=== PATIENT | female | born 1995 | race African-American/Black ===

== ENCOUNTER 2017-10-08 17:19 | Emergency (ER) | payer SELFPAY ==
[2017-10-08 17:46] LABS: Bilirubin Small (Negative); Blood, Urine Large (Negative); Clarity Slightly Cloudy (Clear); Glucose, Urine (Dipstick) Negative (Negative); Leukocyte Negative (Negative); Nitrite Negative (Negative); Protein, Urine (Dipstick) 100 mg/dL (Neg-Trace); Specific Gravity, Urine 1.015 (1.005-1.030); pH, Urine 6.5 (5.0-9.0)
[2017-10-08 17:47] LABS: Pregnancy Test - Urine (BHCG) Negative (Negative); Specific Gravity 1.015 (1.002-1.036)
[2017-10-08 17:48] LABS: Pregu Control Background? CLEAR/WHITE (CLR/WHITE); Pregu Control Bar Appear? YES (CONTROL BAR)
[2017-10-08 17:49] LABS: RBC/HPF 21-50 HPF (0-3)
[2017-10-08 17:50] LABS: Bacteria/HPF 1+ HPF (None Seen); Squamous Epithelial 0-3 HPF (0-3)
[2017-10-08 17:51] LABS: Oval Fat Bodies/HPF Rare HPF (None Seen)
[2017-10-08] MEDS ORDERED: Ondansetron ODT 4 MG TAB ONE (18:30)
[2017-10-08] MEDS ORDERED: Ketorolac Tromethamine 60 MG/2 ML VIAL ONE (18:30)
--- NOTE | 2017-10-08 19:30 | RAD ---
CHEST TWO VIEWS 10/08/17 HISTORY: Cough and fever. FINDINGS: Normal cardiac silhouette. Pulmonary vessels and hilum are normal. costophrenic angles are clear. No mass. No consolidation. No pneumothorax or osseous abnormalities. IMPRESSION: No acute cardiopulmonary process. POS: [facility]
== END 2017-10-08 19:21 | disposition home or self-care (01) ==
LOC: SCSER 17:19
DX: J40 Bronchitis, not specified as acute or chronic (principal)
CPT/HCPCS: 71046; 81003; 81015; 81025; 87081; 87430; 87804; 96372; J1885; Q0162

== ENCOUNTER 2017-10-11 13:51 | Emergency (ER) | payer SELFPAY ==
[~2017-10-11 13:51] MED LIST: Iopamidol 370 76% 100 ML VIAL ONE
[2017-10-11] MEDS ORDERED: Ondansetron HCl/PF 4 MG/2 ML Vial ONE (14:13)
[2017-10-11 14:23] LABS: #Basophils 0.1 thou/uL (0.0-0.2); #Lymphocytes 3.3 thou/uL (1.20-3.40); #Monocytes 0.6 thou/uL (0.11-0.59); #Neutrophils 4.4 thou/uL (1.40-6.50); %Basophils 0.9 % (0.0-1.0); %Eosinophils 0.1 % (0.0-10.0); %Lymphocytes 39.4 % (21.0-51.0); %Monocytes 6.7 % (0.0-10.0); %Neutrophils 52.9 % (42.0-75.0); Hemoglobin 13.5 g/dL (12.0-16.0); Mean Corpuscular HGB CONC 33.3 g/dL (32.0-36.0); Mean Corpuscular Hemoglobin 29.3 pg (27.0-31.0); Mean Corpuscular Volume 88.1 fl (81.0-99.0); Mean Platelet Volume 6.7 fL (7.4-10.4); Platelet Count 291 thou/uL (130-400); Red Blood Cell (RBC) Count 4.62 mill/uL (4.20-5.40); White Blood Cell (WBC) Count 8.3 thou/uL (4.8-10.8)
[2017-10-11 14:24] LABS: Bilirubin Negative (Negative); Blood, Urine Moderate (Negative); Clarity Clear (Clear); Glucose, Urine (Dipstick) Negative (Negative); Leukocyte Negative (Negative); Nitrite Negative (Negative); Protein, Urine (Dipstick) 100 mg/dL (Neg-Trace); pH, Urine 6.5 (5.0-9.0)
[2017-10-11 14:25] LABS: Pregnancy Test - Urine (BHCG) Negative (Negative); Pregu Control Background? CLEAR/WHITE (CLR/WHITE); Pregu Control Bar Appear? YES (CONTROL BAR)
[2017-10-11 14:31] LABS: Bacteria/HPF 1+ HPF (None Seen); Oval Fat Bodies/HPF Rare HPF (None Seen); Squamous Epithelial 0-3 HPF (0-3); WBC/HPF 0-3 HPF (0-3)
[2017-10-11 14:42] LABS: ALT (SGPT) 13 U/L (8-55); AST (SGOT) 18 U/L (5-34); Alkaline Phosphatase 59 U/L (40-150); Anion Gap 13 mmol/L (10-20); BUN (Urea Nitrogen) 7 mg/dL (7.0-18.7); Bilirubin, Total 0.6 mg/dL (0.2-1.2); Calc. Creatinine Clearance 0 mL/min (70-130); Calcium 9.2 mg/dL (7.8-10.44); Carbon Dioxide 28 mmol/L (22-29); Chloride 102 mmol/L (98-107); Estimated GFR-MDRD Greater than 90; Globulin 3.4 g/dL (2.4-3.5); Glucose 86 mg/dL (70-105); Lipase 34 U/L (8-78); Potassium 3.4 mmol/L (3.5-5.1); Protein, Total 7.4 g/dL (6.0-8.3); Sodium 140 mmol/L (136-145)
--- NOTE | 2017-10-11 16:29 | CT ---
ABDOMEN AND PELVIS CT WITH CONTRAST: Clinical history: Abdominal pain. Nausea, vomiting. FINDINGS: Imaged lung bases reveal reticular nodular opacities, ground glass in appearance favoring an atypical infection although incompletely assessed. Multifocal patchy hypoattenuating foci of each kidney are seen, more notable on the right. This indicates pyelonephritis. There is no focal hepatic or splenic lesion. No peripancreatic inflammation. Bowel is not reliably assessed without enteric contrast. Ther e is heterogeneity in the pelvis and adnexa with moderate volume of free pelvic fluid. Moderate diste ntion of the unopacified urinary bladder. Osseous structures reveal no acute findings. IMPRESSION: 1. Multifocal heterogeneity with hypoattenuating foci of each kidney which may be on the basis of marcelle lonephritis. Recommend correlation with urinary and laboratory values. 2. Findings indicate atypical infection at the lung bases. POS: [facility]
== END 2017-10-11 16:58 | disposition home or self-care (01) ==
LOC: SCSER 13:51
DX: R10.32 Left lower quadrant pain (principal); R11.2 Nausea with vomiting, unspecified
CPT/HCPCS: 74177; 80053; 81003; 81015; 81025; 83690; 85025; 96361; 96374; J2405

== ENCOUNTER 2019-08-04 14:31 | Outpatient (CLI) | payer OTHER ==
--- NOTE | 2019-08-04 15:43 | ULT ---
OB ULTRASOUND: HISTORY: anatomy. FINDINGS: A single live intrauterine gestation is seen with measurements corresponding to an estimated gestatio nal age of 20 weeks 4 days and NATALEE at 12/18/2019. The estimated weight measures 379 gm or 13 ou nces (15% by Hadlock criteria). measurements are as follows: BPD 4.79 cm, 20 weeks 3 days HC 18.03 cm, 20 weeks 3 days AC 15.60 cm, 20 weeks 5 days FL 3.49 cm, 21 weeks 0 days heart rate measures 49 b.p.m. LORI measures 17.6 cm. Placenta is anteriorly located without ev idence of placenta previa. A 3-vessel cord, cord insertion, kidneys, bladder, lateral ventricles, cerebellum, spine, 4-gale mber heart, stomach, nose and lips as well as upper and lower extremities are visualized. No definit e abnormalities are seen. IMPRESSION: Single live intrauterine of 20 weeks 4 days estimated gestational age and estimated date of delivery at 12/18/2019. POS: [facility]
== END 2019-08-04 14:32 | disposition home or self-care (01) ==
LOC: ULT 14:31
PROVIDERS: ATTEND Family Medicine
DX: Z34.02 Encounter for supervision of normal first pregnancy, second trimester (principal); Z3A.20 20 weeks gestation of pregnancy
CPT/HCPCS: 76805

== ENCOUNTER 2019-09-23 21:16 | Day surgery (SDC) | payer OTHER ==
[2019-09-23 21:48] VITALS: BP 125/75; TEMP 98.6; BMI 32.3
[2019-09-23] MEDS ORDERED: hydrALAZINE 20 MG/ML VIAL SLOW IVP PRN (22:32)
--- NOTE | 2019-09-23 23:41 | PRG ---
DATE OF SERVICE: PRIMARY OB: Blu Wu MD CHIEF COMPLAINT: Fall. HISTORY OF PRESENT ILLNESS: The patient is a 24-year-old, G1, P0 female with an intrauterine at 27 weeks and 5 days presenting after she had a fall about an hour and a half ago. The patient reports that she was walking in her house and tripped over a garbage can lid, causing her to stumble forward and fall to her knees, hitting the side of the entry door with her side and her belly. The patient denies any direct trauma to the front of her belly. She denies any vaginal bleeding or leakage of fluid. She does report she has had quite a bit of cramping initially, but it seems to be improving. She denies any fever, headache, chest pain, shortness of breath, nausea, vomiting, or diarrhea. She reports she has constipation on occasion. Denies any new rashes, hip problems, knee problems, or muscle weakness. She is still quite sore in her lower pelvis, making it difficult to move and get up. She denies again vaginal bleeding or leakage of fluid. Denies urinary urgency or frequency. PAST MEDICAL HISTORY: Negative. PAST SURGICAL HISTORY: Tonsillectomy. SOCIAL HISTORY: Denies drug, alcohol, or tobacco use. ALLERGIES: NO KNOWN DRUG ALLERGIES. MEDICATIONS: vitamins. OB LABS: Unavailable at time of dictation. REVIEW OF SYSTEMS: Per HPI. PHYSICAL EXAMINATION: VITAL SIGNS: Blood pressure is 125/75, heart rate of 82, saturating 100% on room air, and respiratory rate 18. GENERAL: She appears to be in no acute distress. She is alert, oriented, cooperative, and pleasant to interact with. HEAD: Normocephalic and atraumatic. The patient does exhibit difficulty trying to sit up from tenderness in her lower pelvis. LUNGS: Clear to auscultation bilaterally. HEART: Has regular rate and rhythm. ABDOMEN: Gravid and soft. Again, she has tenderness with deviation of the uterus in her lower pelvis. There is no CVA tenderness. No paravertebral tenderness. No SI joint tenderness. EXTREMITIES: Nontender and nonedematous. DIAGNOSTIC DATA: heart tracing shows the fetus with a baseline in the 140s with moderate long-term variability. Tocometer shows some irritability. Type and screen is pending. ASSESSMENT AND PLAN: The patient is a 24-year-old, G1, P0 female with an intrauterine at 27 weeks and 5 days, status post a fall, causing indirect trauma to her abdomen from the side. The patient has been having cramping since the time of the event, though she reports that does seem to be improving. We will be monitoring her for at least 4 hours and then re-evaluate. I have ordered a type and screen just to understand what her Rh status is. The abdomen is soft to palpation and nontender, I do not suspect any current abruption. After monitoring for about 4 hours, we will re-evaluate and send home if her contractions have dissipated. Fetus has a category I tracing. addenddum Blood type_O+ PT was discharged home stable after four hours of monitoring. Job ID: [id number] [facility]
== END 2019-09-24 01:15 | disposition home or self-care (01) ==
LOC: L&D/OP 21:16
PROVIDERS: ATTEND Family Medicine
DX: O99.89 Other specified diseases and conditions complicating pregnancy, childbirth and the puerperium (principal); R10.30 Lower abdominal pain, unspecified; Z3A.27 27 weeks gestation of pregnancy; W01.198A Fall on same level from slipping, tripping and stumbling with subsequent striking against other object, initial encounter
CPT/HCPCS: 36415; 86900; 86901; 99283

== ENCOUNTER 2019-11-19 23:18 | Day surgery (SDC) | payer OTHER ==
[2019-11-19] MEDS ORDERED: Ondansetron PF 4 MG/2 ML Vial ONE (23:43)
[2019-11-19 23:54] VITALS: BMI 34.0
[2019-11-20] MEDS ORDERED: Lactated Ringer's 1,000 ML IV SCH (00:30)
[2019-11-20] MEDS ORDERED: hydrALAZINE 20 MG/ML VIAL SLOW IVP PRN (01:36)
--- NOTE | 2019-11-20 04:00 | PRG ---
DATE OF SERVICE: 11/19/2019 PRIMARY OB: Dr. Blu Wu. CHIEF COMPLAINT: Nausea, vomiting, and diarrhea. HISTORY OF PRESENT ILLNESS: The patient is a 24-year-old, G1, P0 female with an intrauterine at 36 weeks' gestation, who has presented to Labor and Delivery with a 2-day history of nausea and vomiting. She reports yesterday she vomited about four or five times and since has had four or five episodes of diarrhea today. She denies any sick contacts. She denies eating any leftovers, did not tolerate any food well today. Yesterday, she reports her sister made chicken wings from scratch, but reports that they were purchased yesterday from the store. She denies fever. She denies any new rashes, headache, chest pain, or shortness of breath. Denies any constipation, hip problems, knee problems, muscle weakness, vaginal bleeding, leakage of fluid, urinary urgency or frequency, or uterine contractions. PAST MEDICAL HISTORY: Negative. PAST SURGICAL HISTORY: Tonsillectomy. SOCIAL HISTORY: Denies drug, alcohol, or tobacco use. ALLERGIES: NO KNOWN DRUG ALLERGIES. MEDICATIONS: vitamins. OB LABS: Unavailable at time of dictation. REVIEW OF SYSTEMS: Per HPI. PHYSICAL EXAMINATION: VITAL SIGNS: Blood pressure is 116/71, heart rate of 91, and respiratory rate of 20. GENERAL: She appears to be in no acute distress. She is alert, oriented, cooperative, and pleasant to interact with. HEAD: Normocephalic and atraumatic. LUNGS: Clear to auscultation bilaterally. HEART: Regular rate and rhythm. ABDOMEN: Gravid and soft, nontender. EXTREMITIES: Nontender and nonedematous. heart tracing shows the fetus with a baseline in the 140s with moderate long-term variability, positive 15 x 15 accelerations, no decelerations. Tocometer showing some mild irritability and occasional contractions. ASSESSMENT AND PLAN: The patient was given a liter of IV hydration and Zofran. She reports after hydration, she is feeling a lot better and needed to urinate on her own. The patient is being discharged home with hydration instructions and labor precautions. Fetus has a category I tracing, reactive NST. Job ID: [id number]
== END 2019-11-20 01:25 | disposition home health service (06) ==
LOC: L&D/OP 23:18
PROVIDERS: ATTEND Family Medicine
DX: O21.2 Late vomiting of pregnancy (principal); O99.613 Diseases of the digestive system complicating pregnancy, third trimester; R19.7 Diarrhea, unspecified; Z3A.36 36 weeks gestation of pregnancy
CPT/HCPCS: 96360; 99282; J2405

== ENCOUNTER → 2019-12-19 | Day surgery (SDC) | payer OTHER ==
[2019-12-19 11:27] VITALS: BMI 38.1
[2019-12-19 11:33] VITALS: BP 139/83; TEMP 98.3
--- NOTE | 2019-12-19 14:57 | PRG ---
DATE OF SERVICE: 12/19/2019 PRIMARY OB: Dr. Blu Wu. CHIEF COMPLAINT: Abdominal pain. HISTORY OF PRESENT ILLNESS: The patient is a 24-year-old, G1, P0 female with an intrauterine at 39 weeks and 5 days, presenting to Labor and Delivery with uterine contractions that began earlier this morning. The patient reports that she is scheduled for induction of labor on Thursday. She reports that her pain is in her back and her abdomen. She reports that she had some cramping last night and again began having it again this morning at 10:30 to 11:00, and she feels contractions about every 10 minutes. She denies leakage of fluid or vaginal bleeding. She denies any recent illness, fever, fall, cough, headache, chest pain, shortness of breath, nausea, vomiting, diarrhea, constipation, hip problems, knee problems, muscle weakness. She denies any new rashes, change in discharge, urinary frequency or urgency. PAST MEDICAL HISTORY: Negative. PAST SURGICAL HISTORY: She has had her tonsils removed. ALLERGIES: NO KNOWN DRUG ALLERGIES. MEDICATIONS: vitamins. SOCIAL HISTORY: Denies drug, alcohol, or tobacco use. OB LABORATORY DATA: Unavailable at the time of dictation. REVIEW OF SYSTEMS: Per HPI. PHYSICAL EXAMINATION: VITAL SIGNS: Blood pressure 122/70, heart rate of 76, respiratory rate 18, temperature 98.5. GENERAL: She appears to be in no acute distress. She is alert and oriented, cooperative and pleasant to interact with. HEAD: Normocephalic and atraumatic. LUNGS: Clear to auscultation bilaterally. HEART: Regular rate and rhythm. ABDOMEN: Gravid, soft, nontender. EXTREMITIES: Nontender, nonedematous. CERVICAL: 2, 60, -1 station per nursing staff, unchanged after 2 hours. heart tracing shows the fetus with a baseline in the 150s with moderate long-term variability, positive 15 x 15 accelerations. She had a couple of early looking decelerations early on in the strip that resolved spontaneously. Tocometer showing contractions about every 10 to 15 minutes, not always felt by the patient. ASSESSMENT AND PLAN: The patient is a 24-year-old G1, P0 female with an intrauterine at 39 weeks and 5 days, presenting for labor. The patient has no evidence of labor at this time. She is scheduled for induction of labor on Wednesday, which we have encouraged she return to. She has a fetus with a category 1 tracing. The patient is being discharged to home. Job ID: [id number]
== END ==
LOC: L&D/OP 11:02
PROVIDERS: ATTEND Family Medicine
DX: O47.1 False labor at or after 37 completed weeks of gestation (principal); Z3A.39 39 weeks gestation of pregnancy

== ENCOUNTER 2019-12-20 06:52 | Inpatient (IN) | payer OTHER ==
[2019-12-20] MEDS ORDERED: Fentanyl 4 mcg/Bup 0.1% Cadd 100 ML ONE (07:24)
[2019-12-20] MEDS ORDERED: Diphenoxylate HCl/Atropine Tablet PO PRN (07:30)
[2019-12-20] MEDS ORDERED: hydrALAZINE 20 MG/ML VIAL SLOW IVP PRN ×2 (07:30→13:33)
[2019-12-20] MEDS ORDERED: NS / Oxytocin 40 units/1000ml 1,000 ML IV PRN (07:30)
[2019-12-20] MEDS ORDERED: Penicillin G Potassium 5 MILL.UNITS in Sodium Chloride 0.9% 100 ML IVPB SCH (07:30)
[2019-12-20] MEDS ORDERED: Butorphanol Tartrate 1 MG/ML VIAL SLOW IVP PRN (07:30)
[2019-12-20] MEDS ORDERED: Methylergonovine 0.2 MG/ML VIAL IM PRN (07:30)
[2019-12-20] MEDS ORDERED: Lidocaine 1% (PF) 30 ML VIAL SC PRN (07:30)
[2019-12-20] MEDS ORDERED: HYDROcodone/Acetaminophen 5/325 mg Tablet PO PRN (07:30)
[2019-12-20] MEDS ORDERED: Promethazine HCl 25 MG/ML VIAL IM PRN ×4 (07:30→13:33)
[2019-12-20] MEDS ORDERED: Carboprost 250 MCG/ML AMP IM PRN (07:30)
[2019-12-20] MEDS ORDERED: Misoprostol 200 MCG TAB PR PRN (07:30)
[2019-12-20] MEDS ORDERED: NS w/ Oxytocin 10 units 500 ML IV SCH ×2 (07:30)
[2019-12-20] MEDS ORDERED: Ibuprofen 800 MG TAB PO PRN (07:30)
[2019-12-20] MEDS ORDERED: Ondansetron PF 4 MG/2 ML Vial IVP PRN ×4 (07:30→13:33)
[2019-12-20 07:32] VITALS: BMI 38.1
[2019-12-20] MEDS: Lactated Ringer's 1,000 ML IV SCH ×5 (07:45→20:49)
[2019-12-20 07:48] LABS: Hemoglobin 11.9 g/dL (12.0-16.0); Mean Corpuscular HGB CONC 32.3 g/dL (32.0-36.0); Mean Corpuscular Hemoglobin 26.9 pg (27.0-31.0); Mean Corpuscular Volume 83.1 fL (78.0-98.0); Mean Platelet Volume 7.6 fL (7.4-10.4); Platelet Count 321 thou/uL (130-400); RBC Distribution Width 14.4 % (11.5-14.5); Red Blood Cell (RBC) Count 4.43 mill/uL (4.20-5.40); White Blood Cell (WBC) Count 14.3 thou/uL (4.8-10.8)
[2019-12-20 08:28] LABS: HBSAg Index 0.13 S/CO (0-0.99); Hep B Surf Ag Non-Reactive S/CO (NonReactive); Syphilis Antibody Nonreactive (Nonreactive); Syphilis Antibody Index 0.07 S/CO (<1.00 Non-Reactive)
[2019-12-20] MEDS ORDERED: NS / Oxytocin 40 units/1000ml 0 ML ONE (09:32)
[2019-12-20] MEDS ORDERED: Lidocaine 1% (PF) 30 ML VIAL ONE (09:32)
[2019-12-20] MEDS ORDERED: diphenhydrAMINE 50 MG/ML VIAL IVP PRN ×2 (10:24→11:42)
[2019-12-20] MEDS ORDERED: EPHEDRINE 25 MG/5 ML SYRINGE SLOW IVP PRN (10:24)
[2019-12-20] MEDS ORDERED: Naloxone HCl 0.4 mg/ml Vial IVP PRN ×4 (10:24→11:42)
[2019-12-20] MEDS ORDERED: Lactated Ringer's 500 ML IV PRN (10:24)
[2019-12-20] MEDS ORDERED: Acetaminophen 325 MG TAB PO PRN ×2 (10:24→13:33)
[2019-12-20] MEDS ORDERED: Communication Order-Pharmacy FS SCH ×2 (10:30→11:45)
[2019-12-20] MEDS ORDERED: Fentanyl 4 mcg/Bupivacaine 0.1% Cassette 100 ML EPIDURAL SCH (10:30)
[2019-12-20] MEDS ORDERED: Azithromycin 500 MG VIAL ONE (10:41)
[2019-12-20] MEDS ORDERED: Bupivacaine PF 0.5% 30 ML VIAL ONE ×2 (10:57→14:28)
[2019-12-20] MEDS ORDERED: MORPHINE 5 MG/10 ML PF VIAL ONE (11:04)
[2019-12-20] MEDS ORDERED: Penicillin G 2.5 MILL.units 2.5 MILL.UNITS in Premix Bag 1 BAG IVPB SCH (11:30)
[2019-12-20] MEDS ORDERED: Naloxone HCl 0.4 mg/ml Vial IV PRN (11:42)
[2019-12-20] MEDS ORDERED: Ketorolac Tromethamine 30 MG/ML VIAL IVP PRN (11:42)
[2019-12-20] MEDS ORDERED: Ondansetron HCl/PF 4 MG/2 ML Vial IVP PRN (11:42)
[2019-12-20] MEDS ORDERED: HYDROmorphone 2 MG/ML VIAL SLOW IVP PRN (11:42)
[2019-12-20] MEDS ORDERED: L&D-Morphine 4 MG/ML VIAL SLOW IVP PRN (11:42)
[2019-12-20] MEDS ORDERED: Promethazine HCl 25 MG SUPP PR PRN (11:42)
[2019-12-20] MEDS ORDERED: Meperidine HCl/PF 25 MG/ML VIAL SLOW IVP PRN (11:42)
[2019-12-20] MEDS ORDERED: Ketorolac Tromethamine 30 MG/ML VIAL IVP SCH (11:45)
[2019-12-20] MEDS ORDERED: Lanolin Ointment 7 GM TUBE TOP PRN (13:33)
[2019-12-20] MEDS ORDERED: diphenhydrAMINE 25 MG CAP PO PRN (13:33)
[2019-12-20] MEDS ORDERED: Bisacodyl 10 MG SUPP PR PRN (13:33)
[2019-12-20] MEDS ORDERED: Adacel (T-DAP) 0.5 ML SYRINGE IM ONE (13:33)
[2019-12-20] MEDS ORDERED: NS / Oxytocin 40 units/1000ml 1,000 ML ONE (13:38)
[2019-12-20] MEDS ORDERED: Bupivacaine 0.25% HCL 30 ML VIAL ONE (14:28)
[2019-12-20] MEDS: Ketorolac Tromethamine 30 MG/ML VIAL IVP SCH (18:27)
[2019-12-20] MEDS: Ferrous Sulfate 325 MG TAB PO SCH (23:08)
[2019-12-20] MEDS: Docusate Calcium (SURFAK) 240 MG CAP PO SCH (23:08)
[2019-12-20] MEDS ORDERED: Meperidine HCl/PF 25 MG/ML VIAL IM PRN (23:45)
[2019-12-21] MEDS: Ketorolac Tromethamine 30 MG/ML VIAL IVP SCH ×2 (00:38→06:38)
--- NOTE | 2019-12-21 01:48 | OP ---
DATE OF PROCEDURE: 12/20/2019 PRIMARY SURGEON: Dr. Blu Wu MD. DISPLAY DESIGNER OUTSIDE SURGEON: Ysabel Goddard MD. PROCEDURE PERFORMED: Primary low transverse section. PREOPERATIVE DIAGNOSES: 1. Term intrauterine . 2. Non-reassuring heart tones (recurrent late decelerations). POSTOPERATIVE DIAGNOSES: 1. Term intrauterine , delivered. 2. Status post primary low transverse section. ANESTHESIA: Spinal. INDICATIONS: The patient is a 24-year-old, G1, P0 female at 39 and 6 weeks gestation who presents for a primary low transverse section due to persistent non-reassuring heart tones. PROCEDURE IN DETAIL: After risks, benefits, and alternatives were explained to the patient, she gave informed consent. Preoperative antibiotics included cefazolin 2 g IV. The patient was taken to the operating room. Spinal anesthesia was initiated. The patient was placed in the supine position with a left tilt and prepped and draped in the usual sterile fashion. A Pfannenstiel incision was made with a scalpel and carried down to the level of the fascia, which was sharply nicked. The fascial cut was extended bilaterally with Harding scissors. The inferior and superior edges of the cut fascia were elevated with Genevieve clamps. The underlying rectus muscles were then sharply and bluntly dissected free. The recti were then divided digitally and retracted manually. The peritoneum was then entered bluntly and retracted manually. Bladder blade was placed. A low transverse score was made with a scalpel and the uterus was entered bluntly in the midline. The hysterotomy was then extended manually. The infant was noted to be vertex and was easily delivered by fundal pressure. Cord was clamped and cut and grossly normal male was handed to waiting nurse. Cord blood was obtained. Placenta was manually extracted and noted to be intact with a three-vessel cord for being discarded. The uterus was then externalized, and the endometrium was curetted with a dry lap. The bladder blade was then placed, and the uterus was closed with a running nonlocking #1 Vicryl suture. Following this, hemostasis of the hysterotomy was noted and the abdomen was irrigated with saline and suctioned free of clots. The anterior aspect of the uterus was then covered with four sheets of Seprafilm before being internalized and the hysterotomy was again noted to be hemostatic. The peritoneum was closed with a running nonlocking 3-0 Vicryl suture. Following this, the fascia was closed with a running nonlocking 0 PDS suture. The subcutaneous layer was then closed using interrupted 3-0 Vicryl sutures. The subcutaneous tissue was then irrigated and free bleeders were cauterized using electrocautery. Skin was then approximated with maria teresa and a pressure dressing was placed. All counts were correct. The patient tolerated the procedure well, and was taken to the recovery room in stable condition. QUANTITATIVE BLOOD LOSS: 560mL COMPLICATIONS: None. SPECIMENS: Cord blood sent to lab for blood type. FINDINGS: 1. Grossly normal male with Apgars 8 & 9. 2. Grossly normal placenta with three vessel cord, discarded. DRAINS: Sanchez to gravity draining clear urine. Job ID: [id number] [facility]
[2019-12-21 06:44] LABS: Mean Corpuscular HGB CONC 33.4 g/dL (32.0-36.0); Mean Corpuscular Hemoglobin 27.8 pg (27.0-31.0); Mean Corpuscular Volume 83.3 fL (78.0-98.0); Mean Platelet Volume 7.4 fL (7.4-10.4); Platelet Count 230 thou/uL (130-400); RBC Distribution Width 14.2 % (11.5-14.5); Red Blood Cell (RBC) Count 3.23 mill/uL (4.20-5.40)
[2019-12-21] MEDS: Docusate Calcium (SURFAK) 240 MG CAP PO SCH ×2 (09:32→21:11)
[2019-12-21] MEDS: Ferrous Sulfate 325 MG TAB PO SCH ×2 (09:32→22:41)
[2019-12-21] MEDS: Prenatal Vitamin 1 TAB PO SCH (09:32)
[2019-12-21] MEDS: Simethicone Chewable 80 MG TAB PO PRN (09:32)
[2019-12-21] MEDS: HYDROcodone/Acetaminophen 5/325 mg Tablet PO PRN ×3 (11:37→21:11)
[2019-12-21] MEDS: Ibuprofen 800 MG TAB PO SCH ×3 (12:02→21:10)
[2019-12-22] MEDS: HYDROcodone/Acetaminophen 5/325 mg Tablet PO PRN ×5 (03:01→23:18)
[2019-12-22] MEDS: Simethicone Chewable 80 MG TAB PO PRN ×4 (03:03→21:34)
[2019-12-22] MEDS: Ibuprofen 800 MG TAB PO SCH ×3 (06:00→21:35)
[2019-12-22] MEDS: Prenatal Vitamin 1 TAB PO SCH (08:57)
[2019-12-22] MEDS: Docusate Calcium (SURFAK) 240 MG CAP PO SCH ×2 (08:57→21:35)
[2019-12-22] MEDS: Ferrous Sulfate 325 MG TAB PO SCH ×2 (08:57→21:35)
[2019-12-23] MEDS: HYDROcodone/Acetaminophen 5/325 mg Tablet PO PRN ×3 (05:07→17:02)
[2019-12-23] MEDS: Ibuprofen 800 MG TAB PO SCH ×2 (05:08→13:58)
[2019-12-23] MEDS: Simethicone Chewable 80 MG TAB PO PRN (05:08)
[2019-12-23 08:18] VITALS: BP 131/64; TEMP 98.6
[2019-12-23] MEDS: Ferrous Sulfate 325 MG TAB PO SCH (08:57)
[2019-12-23] MEDS: Docusate Calcium (SURFAK) 240 MG CAP PO SCH (08:57)
[2019-12-23] MEDS: Prenatal Vitamin 1 TAB PO SCH (08:57)
--- NOTE | 2019-12-26 12:08 | PQF ---
STEPHANIE BLANCO ROLAND R MD [id number] CLINICAL DOCUMENTATION CLARIFICATION FORM: POST DISCHARGE Addendum to original discharge summary date: ____ Late entry note date: __ DATE: 12/26/2019 ATTN: GAMA ALEGRE MD Please exercise your independent, professional judgment in responding to the clarification form. Clinical indicators are provided on the bottom of this form for your review Please check appropriate box(s): [ X ] Acute blood loss anemia [ ] Post-op anemia related to acute blood loss [ ] Chronic Anemia [ ] Other diagnosis [ ] Unable to determine In addition, please specify: Present on Admission (POA): [ ] Yes [ X ] No [ ] Unable to determine . CLINICAL INDICATORS - - EBL -560ml - Operative report on 12/20/2019, GAMA ALEGRE MD - H&H : 11.9 & 36.8 on 12/19, 9.0 & 26.9 on 12/20 - Laboratory findings RISK FACTORS - Primary low transverse section - Operative report on 12/20/2019, GAMA ALEGRE MD TREATMENTS: Ferrous sulfate 325 mg - Medication list (This form is maintained as a part of the permanent medical record) 2014 [employer]. All Rights Reserved [email or web address]
== END 2019-12-23 17:12 | disposition home or self-care (01) | DRG 787 ==
LOC: L&D/OP 06:52 → L&D 07:35 → 3SW 14:14
PROVIDERS: ADMIT Family Medicine; ATTEND Family Medicine
PROC: 10D00Z1 Extraction of Products of Conception, Low, Open Approach (ICD-10-PCS; principal; 2019-12-20)
DX: O76 Abnormality in fetal heart rate and rhythm complicating labor and delivery (principal); D62 Acute posthemorrhagic anemia; Z3A.39 39 weeks gestation of pregnancy; Z37.0 Single live birth; O90.81 Anemia of the puerperium
CPT/HCPCS: 36415; 51702; 85027; 86780; 86850; 86900; 86901; 87340; 88307; 99285; J0456; J0690; J1200; J1885; J2001; J2274; S0020

== ENCOUNTER 2020-02-24 15:18 | Emergency (ER) | payer OTHER ==
[2020-02-24] MEDS ORDERED: Ketorolac Tromethamine 30 MG/ML VIAL ONE (16:38)
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
== END 2020-02-24 17:05 | disposition home or self-care (01) ==
LOC: ERS 15:18
DX: S40.012A Contusion of left shoulder, initial encounter (principal); V89.2XXA Person injured in unspecified motor-vehicle accident, traffic, initial encounter
CPT/HCPCS: J1885

== ENCOUNTER 2021-09-29 17:33 | Emergency (ER) | payer OTHER ==
[2021-09-29] MEDS ORDERED: Lidocaine 1% PF 5 ML VIAL ONE (17:52)
== END 2021-09-29 18:09 | disposition home or self-care (01) ==
LOC: ERS 17:33
DX: L02.415 Cutaneous abscess of right lower limb (principal)
CPT/HCPCS: 10060

== ENCOUNTER 2022-09-09 12:32 | Emergency (ER) | payer OTHER ==
[2022-09-09] MEDS ORDERED: Ketorolac Tromethamine 30 MG/ML VIAL ONE (13:34)
== END 2022-09-09 14:09 | disposition home or self-care (01) ==
LOC: ERS 12:32
DX: S46.911A Strain of unspecified muscle, fascia and tendon at shoulder and upper arm level, right arm, initial encounter (principal); M54.2 Cervicalgia
CPT/HCPCS: 96372; J1885

== ENCOUNTER 2023-04-25 15:06 | Emergency (ER) | payer OTHER | END 2023-04-25 16:07 | disposition home or self-care (01) | LOC: ERS 15:06 | DX: L42 Pityriasis rosea (principal); L29.9 Pruritus, unspecified | CPT/HCPCS: 99282 ==

== ENCOUNTER 2023-09-10 14:33 | Emergency (ER) | payer OTHER, SELFPAY ==
[2023-09-10] MEDS ORDERED: Acetaminophen 500 MG TAB ONE (15:14)
[2023-09-10 16:45] LABS: SARS-CoV-2 NAA Rapid Test Not Detected (NotDetected)
== END 2023-09-10 17:28 | disposition home or self-care (01) ==
LOC: ERS 14:33
DX: J06.9 Acute upper respiratory infection, unspecified (principal); Z20.822 Contact with and (suspected) exposure to COVID-19
CPT/HCPCS: 71045; 87804; 96360; U0002

== ENCOUNTER 2024-08-31 11:05 | Emergency (ER) | payer SELFPAY ==
[2024-08-31] MEDS ORDERED: Ketorolac Tromethamine 30 MG (1 mL) VIAL ONE (11:18)
== END 2024-08-31 11:40 | disposition home or self-care (01) ==
LOC: ERS 11:05
DX: K08.89 Other specified disorders of teeth and supporting structures (principal)
CPT/HCPCS: 96372; 99282; J1885